=== PATIENT | male | born 1980 | race Caucasian/White ===

== ENCOUNTER 2020-05-16 13:28 | Emergency (ER) | payer SELFPAY ==
[~2020-05-16] VITALS: Ht 180.3 cm; Wt 77.3 kg
[~2020-05-16 13:28] MED LIST: NORCO 325 MG-51 TAB PO
[2020-05-16 13:43] VITALS: TEMP 98.9
[2020-05-16 14:28] LABS: BASO # 0.1 (0.0-0.2); BASO % 0.6 % (0.0-2.0); EOS % 0.4 % (0-4.0); GRAN # 5.7 (1.4-6.5); GRAN % 70.5 % (42.2-75.2); HEMATOCRIT 46.8 % (42.0-52.0); HEMOGLOBIN 16.4 g/dl (13.5-18.0); LYMPH # 1.7 (1.2-3.4); LYMPH % 21.3 % (20.0-51.0); MEAN CELL VOLUME 88 fl (80.0-100.0); MEAN CORPUSCULAR HEMOGLOBIN 31 pg (27.0-31.0); MEAN CORPUSCULAR HGB CONC 35 g/dl (33.0-37.0); MEAN PLATELET VOLUME 9.8 fl (7.4-10.4); MONO # 0.6 (0.1-0.6); MONO % 6.8 % (1.7-9.3); PLATELET COUNT 257 K/mm3 (130-400); RED BLOOD COUNT 5.31 M/mm3 (4.20-5.60); REDCELL DISTRIBUTION WIDTH-CV 12.6 % (11.5-14.5)
[2020-05-16 14:39] LABS: ALANINE AMINOTRANSFERASE 165 U/L (4-49); ALBUMIN 4.7 gm/dL (3.5-5.0); ALKALINE PHOSPHATASE 146 U/L (50-136); ANION GAP 14 mmol/L (7-16); AST,SGOT 149 U/L (15-37); BILIRUBIN,TOTAL 0.9 mg/dL (0.0-1.0); BLOOD UREA NITROGEN 8 mg/dL (9-20); CALCIUM 8.8 mg/dL (8.4-10.2); CARBON DIOXIDE 26 mmol/L (22-30); CHLORIDE 101 mmol/L (98-107); CREATININE, serum 0.92 (0.66-1.25); GLUCOSE 123 mg/dL (74-106); SODIUM 142 mmol/L (137-145); TOTAL PROTEIN 8.4 gm/dL (6.4-8.2)
[2020-05-16 14:45] LABS: ACETAMINOPHEN < 10 ug/mL (10-30); SALICYLATE < 1.0 mg/dL
[2020-05-16] MEDS ORDERED: BUSPAR DIVIDOSE15 MG PO (14:55)
[2020-05-16 15:09] LABS: COLLECTION METHOD CLEAN CATCH
[2020-05-16 15:22] LABS: ALCOHOL(ethanol),MEDICAL 349 mg/dL
[2020-05-16 15:25] LABS: PH 7 (5-8); SQUAMOUS EPITHELIAL 0-2 /hpf; URINE APPEARANCE Clear; URINE BACTERIA None Seen /hpf; URINE BILIRUBIN Negative (NEGATIVE); URINE BLOOD 1+ (NEGATIVE); URINE COLOR Straw; URINE GLUCOSE Negative (NEGATIVE); URINE KETONE Negative (NEGATIVE); URINE LEUKOCYTE ESTERASE Negative (NEGATIVE); URINE NITRATE Negative (NEGATIVE); URINE PROTEIN(semi-quant) Negative (NEGATIVE); URINE RBC 0-2 /hpf; URINE UROBILINOGEN Negative (NEGATIVE)
[2020-05-16 15:37] LABS: TRICYCLIC ANTIDEPRESS URINE NEGATIVE
[2020-05-16 17:00] VITALS: BP 126/78; PULSE 78
== END 2020-05-16 17:00 | disposition home or self-care (01) ==
LOC: COL.ER 13:28
PROVIDERS: Nurse Practitioner
DX: F32.9 Major depressive disorder, single episode, unspecified (principal); F41.9 Anxiety disorder, unspecified; F17.210 Nicotine dependence, cigarettes, uncomplicated